=== PATIENT | male | born 1980 | race Caucasian/White ===

== ENCOUNTER 2016-09-24 01:46 | Observation (INO) | payer OTHER ==
[2016-09-24] MEDS ORDERED: SODIUM CHLORIDE 0.9% 1,000 ML IV ONE ×2 (02:32→04:29)
[2016-09-24] MEDS ORDERED: KETOROLAC 60 MG/2 ML VIAL IVP STA (04:41)
[2016-09-24] MEDS ORDERED: KETOROLAC 30 MG/ML VIAL ONE (05:00)
[2016-09-24] MEDS ORDERED: SODIUM CHLORIDE FLUSH 0.9% 10 ML SYRINGE IVP PRN (06:29)
[2016-09-24] MEDS ORDERED: ONDANSETRON 4 MG/2 ML VIAL IVP PRN (06:29)
[2016-09-24] MEDS: D5NS W/20 MEQ KCL 1,000 ML IV SCH ×2 (08:26→18:11)
[2016-09-24] MEDS: OSELTAMIVIR 75 MG CAPSULE PO SCH ×2 (08:36→10:21)
[2016-09-24] MEDS ORDERED: POLYETHYLENE GLYCOL 3350 17 GM PACKET PO SCH (09:00)
[2016-09-24] MEDS ORDERED: PENICILLIN VK 250 MG TABLET PO ONE ×2 (14:00→23:41)
[2016-09-24] MEDS: BENZOCAINE/MENTHOL LOZENGE MM PRN ×2 (14:40→20:41)
[2016-09-24] MEDS: LISINOPRIL 20 MG TABLET PO SCH (14:40)
[2016-09-24] MEDS: SODIUM CHLORIDE FLUSH 0.9% 10 ML SYRINGE IVP SCH ×2 (14:44→19:53)
[2016-09-24] MEDS ORDERED: PENICILLIN VK 250 MG TABLET PO SCH (23:00)
[2016-09-25] MEDS: D5NS W/20 MEQ KCL 1,000 ML IV SCH (03:23)
[2016-09-25] MEDS ORDERED: SACCHAROMYCES BOULARDII 250 MG CAPSULE PO SCH (08:00)
[2016-09-25] MEDS: LISINOPRIL 20 MG TABLET PO SCH (08:16)
== END 2016-09-25 09:03 | disposition home or self-care (01) ==
DX: R55 Syncope and collapse (principal); J02.0 Streptococcal pharyngitis; I10 Essential (primary) hypertension; R00.0 Tachycardia, unspecified; Z79.899 Other long term (current) drug therapy
CPT/HCPCS: 36415; 71020; 80053; 83690; 83735; 83880; 84484; 85025; 85379; 85651; 87275; 87276; 87430; 93005; 93010; 93306; 96361; 96374; 99284; 99285; A9270; G0378

== ENCOUNTER 2017-01-26 21:35 | Emergency (ER) | payer OTHER ==
[2017-01-26 21:42] VITALS: BP 125/75
[2017-01-26] MEDS ORDERED: BUFFERED LIDOCAINE 10 ML SYRINGE ONE (21:55)
--- NOTE | 2017-01-26 22:01 | ED Physician Documentation ---
PD HPI UPPER EXT INJURY - Stated complaint Stated Complaint: LT FINGER LAC - Chief complaint Chief Complaint: Ext Problem - History obtained from History obtained from: Patient - History of Present Illness Location: Left (Right-handed gentleman up-to-date on tetanus was working on his washing machine at home tonight and cut himself on the metal flap to the third and fourth fingers of the left hand and it is persistently bleeding.) Review of Systems Constitutional: denies: Fever, Chills Nose: denies: Rhinorrhea / runny nose, Congestion Respiratory: reports: Reviewed and negative PD PAST MEDICAL HISTORY - Past Medical History Cardiovascular: Hypertension Respiratory: Shortness of breath Neuro: Headache/migraine Endocrine/Autoimmune: None GI: GERD : None HEENT: None Psych: Depression, Post traumatic stress disorder, Claustrophobia Musculoskeletal: Chronic back pain Derm: None - Past Surgical History Past Surgical History: Yes - Present Medications Home Medications: Ambulatory Orders Medication Instructions Recorded Confirmed Lisinopril 20 mg PO DAILY 03/07/15 01/26/17 Naproxen [Naprosyn] 250 mg PO ONCE 09/24/16 01/26/17 - Allergies Allergies/Adverse Reactions: Allergies Allergy/AdvReac Type Severity Reaction Status Date / Time aspirin AdvReac thins Verified 01/26/17 21:42 blood to much - Social History Does the pt smoke?: No Smoking Status: Never smoker Does the pt drink ETOH?: No Does the pt have substance abuse?: No - Immunizations Immunizations are current?: Yes - POLST Patient has POLST: No PD ED PE NORMAL - Vitals Vital signs reviewed: Yes - General General: Alert and oriented X 3, No acute distress - Extremities Extremities: Other (On the tips of the third and fourth fingers there are semicircular last positions without tissue loss it are actively bleeding, a total of 2 cm.) - Neuro Neuro: Alert and oriented X 3, Normal speech - Psych Psych: Normal mood, Normal affect Results - Vitals Vitals: Vital Signs - 24 hr 01/26/17 21:38 Temperature 36.9 C Heart Rate 90 Respiratory 16 Rate Blood Pressure 125/75 O2 Saturation 95 Oxygen O2 Source Room air Procedures - Laceration (location) L 3rd/4th fingertips Length in cm: 2 Wound type: Curved, Flap, Into subcut fat Neurovascular status: Sensory intact, Motor intact, Vascular intact Anesthesia: Lidocaine 1%, With bicarb (digital blocks) Wound Preparation: Hibiclens, Irrigated copiously NS Skin layer closure: Nylon, Interrupted, Size #-0 - enter number (5-0), Sutures - enter # (8) Other: Patient tolerated well, No complications, Neurovascular intact, Tetanus UTD Complexity: Simple Departure - Departure Disposition: 01 Home, Self Care Clinical Impression: Finger laceration Qualifiers: Encounter type: initial encounter Qualified Code(s): S61.219A - Laceration without foreign body of unspecified finger without damage to nail, initial encounter Condition: Good Record reviewed to determine appropriate education?: Yes Instructions: ED Laceration Hand Comments: Wash the wound briefly but in general keep it dry and covered. Come back for any signs of infection which would include: Redness, swelling, drainage, increased pain, or fevers. Followup with your doctor in 10-14 days for suture removal.
== END 2017-01-26 22:35 | disposition home or self-care (01) ==
LOC: ED 21:35
DX: S61.213A Laceration without foreign body of left middle finger without damage to nail, initial encounter (principal); S61.215A Laceration without foreign body of left ring finger without damage to nail, initial encounter; W45.8XXA Other foreign body or object entering through skin, initial encounter; Y92.018 Other place in single-family (private) house as the place of occurrence of the external cause; I10 Essential (primary) hypertension; K21.9 Gastro-esophageal reflux disease without esophagitis
CPT/HCPCS: 12001; 99282; 99283